=== PATIENT | female | born 1960 | race Caucasian/White ===

== ENCOUNTER → 2020-05-30 | Outpatient (CLI) | payer OTHER | LOC: CAT 10:16 | PROVIDERS: ATTEND Family Medicine | DX: Z13.6 Encounter for screening for cardiovascular disorders (principal); I25.10 Atherosclerotic heart disease of native coronary artery without angina pectoris; E78.00 Pure hypercholesterolemia, unspecified ==

== ENCOUNTER 2020-12-23 15:39 | Inpatient (IN) | payer OTHER, BC ==
[~2020-12-23] VITALS: Ht 162.6 cm; Wt 94.1 kg
[2020-12-23] MEDS ORDERED: FLEXERIL PO (17:25)
[2020-12-23] MEDS ORDERED: DHEA 10 MG TAB1 EACH PO (17:27)
[2020-12-23 17:30] VITALS: BP 117/82
[2020-12-23] MEDS ORDERED: CLIMARA1 EAC3 TRANSDERM (17:31)
[2020-12-23] MEDS ORDERED: FISH OIL 1,001000 M3 PO (17:32)
[2020-12-23] MEDS ORDERED: FLAX OIL1000 MG PO (17:33)
[2020-12-23] MEDS ORDERED: MAG-OXIDE400 MG PO (17:35)
[2020-12-23] MEDS ORDERED: TOPROL XL25 MG PO (17:36)
[2020-12-23] MEDS ORDERED: SUPER THERAVIT1 EACH PO (17:38)
[2020-12-23] MEDS ORDERED: SWEET OIL30 ML PO (17:39)
[2020-12-23] MEDS ORDERED: OMEPRAZOLE 20 M20 M1 PO (17:42)
[2020-12-23] MEDS ORDERED: PROBIOTIC1 EAC7 PO (17:43)
[2020-12-23] MEDS ORDERED: PROGESTERO50 MG/1 M3 PO (17:44)
[2020-12-23] MEDS ORDERED: TRIDERM28.4 GM (17:48)
[2020-12-23] MEDS ORDERED: VITCB500GO PO (17:49)
[2020-12-23] MEDS ORDERED: VITAMIN D3 COM1 EACH PO (17:51)
[2020-12-23] MEDS ORDERED: MICARDIS 20MG T20 M1 PO (17:56)
[2020-12-23 18:00] VITALS: BP 117/82
--- NOTE | 2020-12-23 19:46 | NUR ---
PT CARE ASSUMED AT 1720. ASSESSMENTS CHARTED. MEDICATIONS CHARTED. RAC IV. SINUS RHYTHM. PT HAS AN EVENT MONITOR. PT ARRIVED FROM [place] WITH CHEST PAIN, RAPID HR. PT IS TO BE NPO AFTER 0000, OTHERWISE HEART HEALTHY AND GLUTEN FREE.
[2020-12-23 20:30] VITALS: BP 103/69
[2020-12-24 04:22] LABS: HEMATOCRIT 36.1 % (37.0-47.0); HEMOGLOBIN 12.5 gm/dL (12.0-15.0); MCH 32.6 pg (26.0-34.0); MCHC 34.7 g/dL (28.0-37.0); RBC 3.84 mil/uL (4.20-5.00); RDW 13.5 % (10.5-14.5); WBC 8.9 thou/uL (4.0-11.0)
[2020-12-24 04:23] LABS: CALCIUM 8.5 mg/dL (8.5-10.1); CREATININE 0.8 mg/dL (0.6-1.0)
[2020-12-24 05:34] VITALS: BP 95/55
--- NOTE | 2020-12-24 06:00 | NUR ---
A VERY DELIGHTFUL LITTLE LADY. IN GOOD SPIRITS. DENIES CP NOR SOA NOR TACHYCARDIA. EVENT MONITOR IN PLACE. NPO SINCE [place] FOR POSSIBLE CARDIAC CATH TODAY. PROGRESSING TOWARD GOALS.
[2020-12-24 07:50] VITALS: BP 111/58
[2020-12-24 12:06] VITALS: BP 117/58
--- NOTE | 2020-12-24 13:36 | 2DMMODE ---
[facility] [place] [address] 2 D/M-MODE ECHOCARDIOGRAM Name: SRAVAN LUNDY Room #: 219-P ADM IN ..#: [id number] Admission: 12/23/20 Attend Phys: Van Shane MD Discharge: Date of : 56 Report #: [id number] REPORT FOR: cc: FAM - Family physician unknown FAM - Family physician unknown Rambo Underwood MD ~ APPROVED REPORT Study performed: 12/24/2020 11:02:23 EXAM: Comprehensive 2D, Doppler, and color-flow Echocardiogram Patient Location: In-Patient Room #: 219 Status: routine BSA: 1.94 HR: 58 bpm BP: 111/68 mmHg Rhythm: NSR Other Information Study Quality: Adequate Risk Factors: Cardiac Risk Factors: HTN Indications Palpitations 2D Dimensions RVDd: 21.34 mm IVSd: 9.18 (7-11mm) LVOT Diam: 21.02 (18-24mm) LVDd: 45.56 mm PWd: 9.80 (7-11mm) Ascending Ao: 32.35 (22-36mm) LVDs: 27.24 (25-40mm) Left Atrium: 27.22 (27-40mm) Aortic Root: 31.15 mm LV Single Plane 4CH: 47.09 % Volumes Left Atrial Volume (Systole) Single Plane 4CH: 35.08 mL Single Plane 2CH: 44.00 mL Biplane LA Volume: 46.00 mL LA ESV Index: 23.00 mL/m2 Aortic Valve [facility] [employer] [place] [address] 2 D/M-MODE ECHOCARDIOGRAM Name: SRAVAN LUNDY Room #: 219-P [facility] IN .R.#: [id number] Admission: 12/23/20 Attend Phys: Van Shane MD Discharge: Date of : 56 Report #: [id number] AoV Peak Ricky.: 1.29 m/s AO Peak Gr.: 7.62 mmHg LVOT Max P.08 mmHg LVOT Max V: 0.88 m/s RODRIGO Vmax: 2.36 cm2 AI Vmax: 3.18 m/s AI Manati: 0.70 m/s2 AI PHT: 1316.49 ms Mitral Valve E/A Ratio: 0.9 MV Decel. Time: 3442.13 ms MV E Max Ricky.: 0.37 m/s MV A Ricky.: 0.40 m/s MV PHT: 998.22 ms MVA (PHT): 2.57 cm2 IVRT: 92.27 ms Pulmonary Valve PV Peak Ricky.: 0.93 m/s PV Peak Gr.: 3.46 mmHg Pulmonary Vein P Vein S: 0.49 m/s P Vein A: 0.27 m/s P Vein D: 0.30 m/s P Vein A Dur.: 115.3 msec P Vein S/D Ratio: 1.63 Tricuspid Valve TR Peak Ricky.: 2.45 m/s RAP Estimate: 7.00 mmHg TR Peak Gr.: 23.98 mmHg RVSP: 31.00 mmHg Left Ventricle The left ventricle is normal size. There is normal LV segmental wall motion. There is normal left ventricular wall thickness. Left ventricular systolic function is normal. The left ventricular ejection fraction is within the normal range. LVEF is 55%. Grade I - abnormal relaxation pattern. Right Ventricle The right ventricle is normal size. The right ventricular systolic function is normal. Atria The left atrium size is normal. The right atrium size is normal. Aortic Valve The aortic valve is normal in structure. Mild aortic regurgitation. [facility] [address] [place] [address] 2 D/M-MODE ECHOCARDIOGRAM Name: SRAVAN LUNDY BARTH Room #: 219-P [facility] IN ..#: [id number] Admission: 12/23/20 Attend Phys: Van Shane MD Discharge: Date of : 56 Report #: [id number] There is no aortic valvular stenosis. Mitral Valve The mitral valve is normal in structure. Trace mitral regurgitation. No evidence of mitral valve stenosis. Tricuspid Valve The tricuspid valve is normal in structure. Trace tricuspid regurgitation. Pulmonic Valve The pulmonary valve is normal in structure. Trace pulmonic regurgitation. Great Vessels The aortic root is normal in size. IVC is normal in size and collapses >50% with inspiration. Pericardium There is no pericardial effusion. There is no pleural effusion. <Conclusion> The left ventricle is normal size. There is normal left ventricular wall thickness. Left ventricular systolic function is normal. Grade I - abnormal relaxation pattern. The right ventricle is normal size. The left atrium size is normal. Mild aortic regurgitation. Trace mitral regurgitation. Trace tricuspid regurgitation. <ELECTRONICALLY SIGNED> By: Rambo Underwood MD 12/24/20 [id number] Rambo Underwood MD /INF
[2020-12-24 16:21] VITALS: BP 110/57
[2020-12-24 21:20] VITALS: BP 108/69
[2020-12-25 05:05] VITALS: BP 104/66
--- NOTE | 2020-12-25 07:35 | NUR ---
PATIENTS CARE WERE ASSUMED AT SHIFT CHANGE. PATIENT WAS ASSESSED AND MEDS WERE PASSED. PATIENTS HEAD ACH WAS RELIEVED WITH TYLENOL AND A CUP OF COFFEE. ROUNDS WERE DONE. THE BED ALARM IS NOT ON PATIENT HAS A STEADY GAIT AND AMBULATES IN HER ROOM.
[2020-12-25 09:30] VITALS: BP 108/66
[2020-12-25] MEDS ORDERED: TAMBOCOR 100 M100 M1 PO (11:47)
[2020-12-25 11:59] VITALS: BP 108/66
[2020-12-25 12:19] VITALS: BP 111/60
== END 2020-12-25 13:03 | disposition home or self-care (01) | DRG 310 ==
LOC: 2N 15:39
PROVIDERS: Hospitalist; ADMIT Hospitalist; ATTEND Hospitalist
DX: I47.1 Supraventricular tachycardia (principal); I10 Essential (primary) hypertension; K21.9 Gastro-esophageal reflux disease without esophagitis; E87.6 Hypokalemia; E66.9 Obesity, unspecified; G47.33 Obstructive sleep apnea (adult) (pediatric); E78.5 Hyperlipidemia, unspecified; E03.9 Hypothyroidism, unspecified; F41.9 Anxiety disorder, unspecified; K90.0 Celiac disease; L40.50 Arthropathic psoriasis, unspecified; Z90.710 Acquired absence of both cervix and uterus; Z90.49 Acquired absence of other specified parts of digestive tract; Z80.8 Family history of malignant neoplasm of other organs or systems; Z82.49 Family history of ischemic heart disease and other diseases of the circulatory system; Z68.35 Body mass index [BMI] 35.0-35.9, adult; Z79.899 Other long term (current) drug therapy; Z88.0 Allergy status to penicillin; Z88.8 Allergy status to other drugs, medicaments and biological substances; Z98.891 History of uterine scar from previous surgery
CPT/HCPCS: 10081; 10797